=== PATIENT | male | born 1985 | race Caucasian/White ===

== ENCOUNTER 2017-03-27 12:25 | Emergency (ER) | payer SELFPAY ==
[~2017-03-27] VITALS: Ht 190.5 cm; Wt 86.2 kg
[~2017-03-27 12:25] MED LIST: ALBU90OI INH; SULTRIDS PO
== END 2017-03-27 13:12 | disposition left against medical advice (07) ==
LOC: ER 12:25
DX: Z53.21 Procedure and treatment not carried out due to patient leaving prior to being seen by health care provider (principal)
CPT/HCPCS: 99281